=== PATIENT | female | born 1975 | race Caucasian/White ===

== ENCOUNTER 2017-08-30 11:37 | Emergency (ER) | payer BC ==
[~2017-08-30] VITALS: Ht 157.5 cm; Wt 78.5 kg
[2017-08-30 11:45] VITALS: BP_SYST 103
[2017-08-30] MEDS ORDERED: KETOROLAC TROMETHAMINE 30 MG VIAL IM ONE (13:30)
[2017-08-30 13:51] VITALS: BP_SYST 117
== END 2017-08-30 13:51 | disposition home or self-care (01) ==
LOC: SED 11:37
DX: H01.003 Unspecified blepharitis right eye, unspecified eyelid (principal); Z88.8 Allergy status to other drugs, medicaments and biological substances
CPT/HCPCS: 70486; 96372; 99284; J1885